=== PATIENT | female | born 1985 | race Caucasian/White ===

== ENCOUNTER 2023-09-25 08:42 | Outpatient (CLI) | payer OTHER, SELFPAY | END 2023-09-25 08:43 | disposition home or self-care (01) | LOC: NFLDREF 08:44 | PROVIDERS: PCP Internal Medicine; Visit Provider Internal Medicine | DX: Z13.6 Encounter for screening for cardiovascular disorders (principal) | CPT/HCPCS: 80061 ==

== ENCOUNTER 2024-07-11 09:33 | Outpatient (CLI) | payer OTHER, SELFPAY ==
--- NOTE | 2024-07-11 09:45 | CRLHL7_ITS ---
For Patients: As a result of the Century Cures Act, medical imaging exams and procedure reports are released immediately into your electronic medical record. You may view this report before your referring provider. If you have questions, please contact your health care provider. BILATERAL DIGITAL SCREENING MAMMOGRAM WITH COMPUTER-AIDED DETECTION AND TOMOSYNTHESIS CLINICAL HISTORY: Routine screening exam. COMPARISON: None. TECHNIQUE: Digital mammogram in CC and MLO projections including computer-aided detection (CAD). Tomosynthesis was used in this interpretation. BREAST COMPOSITION: The breasts are extremely dense, which lowers the sensitivity of mammography. FINDINGS: RIGHT Breast: No suspicious findings. LEFT Breast: Focal asymmetric density within the retroareolar plane slightly lateral 8 cm from the nipple. IMPRESSION: LEFT breast asymmetry/mass. RECOMMENDATIONS: Additional mammographic views of the LEFT breast including 3D spot compression CC/MLO. LEFT breast ultrasound may also be required. BI-RADS Category 0: Incomplete: Need Additional Imaging Evaluation The [facility] will contact the patient for follow-up. A lay language report of this examination will be provided to the patient. Dictated by James Kunz MD @ 07/15/2024 12:03:08 PM qi/Dictated by: James Kunz MD @ 07/15/2024 12:03:00 PM (Electronically Signed)
== END 2024-07-11 09:34 | disposition home or self-care (01) ==
LOC: MAMMO 09:34
PROVIDERS: PCP Internal Medicine; Visit Provider Internal Medicine
DX: Z12.31 Encounter for screening mammogram for malignant neoplasm of breast (principal); N63.20 Unspecified lump in the left breast, unspecified quadrant
CPT/HCPCS: 77063; 77067

== ENCOUNTER 2024-07-23 10:16 | Outpatient (CLI) | payer OTHER, SELFPAY ==
--- NOTE | 2024-07-23 10:45 | CRLHL7_ITS ---
For Patients: As a result of the Cures Act, medical imaging exams and procedure reports are released immediately into your electronic medical record. You may view this report before your referring provider. If you have questions, please contact your health care provider. DIGITAL DIAGNOSTIC LEFT MAMMOGRAM USING TOMOSYNTHESIS AND COMPUTER-AIDED DETECTION LEFT BREAST ULTRASOUND CLINICAL HISTORY: LEFT breast mass/asymmetry. COMPARISON: 07/11/2024. TECHNIQUE: Digital LEFT mammogram in two projections. Tomosynthesis and CAD used in this interpretation. Real-time ultrasound imaging of LEFT breast with imaging documentation. BREAST COMPOSITION: The breasts are extremely dense, which lowers the sensitivity of mammography. FINDINGS: 3D spot compression CC/MLO LEFT breast mammogram images submitted. Persistent nodular density is present within the LEFT breast. No architectural distortion. No suspicious calcifications. Targeted LEFT breast ultrasound performed. At 3 o`clock 8 cm from the nipple, there is a circumscribed anechoic simple cyst with increased through-transmission measuring 1.5 x 0.7 x 1.5 cm. No solid component or internal vascularity. IMPRESSION: Simple cyst LEFT breast 3 o`clock 8 cm from the nipple measuring 1.5 x 0.7 x 1.5 cm. No suspicious findings. RECOMMENDATIONS: Annual BILATERAL screening mammography. Results and recommendations discussed with the patient. BI-RADS Category 2: Benign A lay language report of this examination will be provided to the patient. Dictated by James Kunz MD @ 07/23/2024 11:19:28 AM j/Dictated by: James Kunz MD @ 07/23/2024 12:13:00 PM (Electronically Signed)
--- NOTE | 2024-07-23 11:15 | CRLHL7_ITS ---
For Patients: As a result of the Cures Act, medical imaging exams and procedure reports are released immediately into your electronic medical record. You may view this report before your referring provider. If you have questions, please contact your health care provider. PLEASE SEE DIGITAL DIAGNOSTIC LEFT MAMMOGRAM PERFORMED SAME DAY CRL:qi busby/Dictated by: James Kunz MD @ 07/23/2024 11:19:00 AM (Electronically Signed)
== END 2024-07-23 10:17 | disposition home or self-care (01) ==
LOC: MAMMO 10:17
PROVIDERS: PCP Internal Medicine; Visit Provider Internal Medicine
DX: N63.20 Unspecified lump in the left breast, unspecified quadrant (principal); R92.333 Mammographic heterogeneous density, bilateral breasts; R92.8 Other abnormal and inconclusive findings on diagnostic imaging of breast
CPT/HCPCS: 76642; 77065; G0279

== ENCOUNTER 2025-02-09 07:43 | Outpatient (CLI) | payer OTHER, SELFPAY | END 2025-02-09 07:44 | disposition home or self-care (01) | LOC: NFLDREF 02-17 22:18 | PROVIDERS: PCP Internal Medicine; Referring Provider Internal Medicine; Visit Provider Internal Medicine | DX: Z13.228 Encounter for screening for other metabolic disorders (principal); Z13.6 Encounter for screening for cardiovascular disorders | CPT/HCPCS: 80053; 80061 ==

== ENCOUNTER 2025-06-04 10:36 | Outpatient (CLI) | payer OTHER, SELFPAY | END 2025-06-04 10:37 | disposition home or self-care (01) | PROVIDERS: PCP Internal Medicine; Visit Provider Family Medicine | DX: R19.7 Diarrhea, unspecified (principal); R53.83 Other fatigue | CPT/HCPCS: 80053; 86140 ==

== ENCOUNTER 2025-06-05 11:53 | Outpatient (CLI) | payer OTHER, SELFPAY | END 2025-06-05 11:54 | disposition home or self-care (01) | LOC: NFLDREF 06-10 18:15 | PROVIDERS: PCP Internal Medicine; Referring Provider Internal Medicine; Visit Provider Family Medicine | DX: R19.7 Diarrhea, unspecified (principal); R53.83 Other fatigue | CPT/HCPCS: 87329; 87493 ==